=== PATIENT | female | born 1985 | race Caucasian/White ===

== ENCOUNTER 2019-08-12 20:28 | Emergency (ER) | payer MEDICAID ==
[~2019-08-12] VITALS: Ht 167.6 cm; Wt 104.3 kg
--- NOTE | 2019-08-12 20:47 | NUR ---
PT PRESENTED TO ER AMBULATORY WITH STEADY GAIT FOR C/O CHRONIC BACK PAIN, 12/09 AA/OX4. RESPIRATIONS EVEN AND UNLABORED NO S/S DISTRESS AT BEDSIDE SR UP FOR SAFETY. BED LOCKED, LOWEST POSITION. INSTRUCTED PT TO CALL NURSE FOR ASSISTANCE MONITORED ACCORDINGLY WILL CONTINUE TO MONITOR
--- NOTE | 2019-08-12 20:53 | NUR ---
DR. SAHU AT BEDSIDE FOR MSE
[2019-08-12] MEDS ORDERED: ONDANSETRON ODT 4 MG TAB.RAPDIS SL ONE ×2 (21:00→21:30)
[2019-08-12] MEDS ORDERED: LORAZEPAM 0.5 MG TABLET PO ONE (21:00)
[2019-08-12] MEDS ORDERED: HYDROCODONE/APAP 10-325 MG TABLET PO ONE (21:00)
[2019-08-12] MEDS ORDERED: ONDANSETRON ODT 4 MG TAB.RAPDIS ONE ×2 (21:05→21:37)
[2019-08-12] MEDS ORDERED: HYDROCODONE/APAP 10-325 MG TABLET ONE (21:06)
[2019-08-12] MEDS ORDERED: LORAZEPAM 0.5 MG TABLET ONE (21:06)
[2019-08-12] MEDS ORDERED: OXYCODONE/APAP 5-325 MG TABLET PO ONE (21:15)
[2019-08-12] MEDS ORDERED: OXYCODONE/APAP 5-325 MG TABLET ONE (21:25)
[2019-08-12 21:26] LABS: *URINE HCG, QUAL NEGATIVE (NEGATIVE)
[2019-08-12 21:43] LABS: BASOPHILS % (AUTO) 0.4 % (0.0-2.0); EOSINOPHILS # (AUTO) 0.1 K/uL (0.0-0.7); HEMATOCRIT 37.4 % (31.2-41.9); HEMOGLOBIN 12.4 g/dL (10.9-14.3); LYMPHOCYTES # (AUTO) 2.6 K/uL (20.0-40.0); LYMPHOCYTES % (AUTO) 29.4 % (20.5-51.5); MEAN CORPUSCULAR HEMOGLOBIN 30.1 uug (24.7-32.8); MEAN CORPUSCULAR HGB CONC 33 g/dL (32.3-35.6); MEAN CORPUSCULAR VOLUME 90.5 fL (75.5-95.3); MONOCYTES # (AUTO) 0.7 K/uL (2.0-10.0); MONOCYTES % (AUTO) 7.5 % (0.0-11.0); NEUTROPHILS # (AUTO) 5.5 K/uL (1.8-8.9); NEUTROPHILS % (AUTO) 61.7 % (38.5-71.5); PLATELET COUNT (AUTO) 274 K/uL (179-408); RED BLOOD CELL COUNT(AUTO) 4.13 MIL/uL (3.63-4.92); WHITE BLOOD COUNT (AUTO) 8.9 K/uL (3.8-11.8)
[2019-08-12 21:48] LABS: CREATININE 0.7 mg/dL (0.6-1.3)
[2019-08-12 21:54] LABS: BILIRUBIN,TOTAL 0.6 mg/dL (0.2-1.0); TOTAL PROTEIN, SERUM 7.8 g/dL (6.4-8.2)
--- NOTE | 2019-08-12 22:17 | NUR ---
Patient discharged to home in stable condition. Written and verbal after care instructions given. Patient verbalizes understanding of instructions. Stressed follow up or return to ER for worsening s/s. aa/ox4. able to speak in complete sentences respirations even and unlabored no s/s of distress denies pain at this time all belongings with pt pt's will drive pt home ambulatory with steady gait
[2019-08-12 23:22] VITALS: BP 125/80
== END 2019-08-12 22:17 | disposition home or self-care (01) ==
LOC: ER 20:35
DX: G89.29 Other chronic pain (principal); M54.5 Low back pain; E66.9 Obesity, unspecified; R42 Dizziness and giddiness; Z87.442 Personal history of urinary calculi
CPT/HCPCS: 36415; 71045; 72110; 84703; 85025; A4663; Q0162